=== PATIENT | male | born 1965 | race Caucasian/White ===

== ENCOUNTER 2017-11-01 19:18 | Emergency (ER) | payer OTHER ==
[2017-11-01 20:16] LABS: Basophils # (Auto) 0.1 K/mm3 (0.0-0.1); Basophils % (Auto) 0.4 % (0.0-1.8); Eosinophils # (Auto) 0.5 K/mm3 (0.0-0.4); Eosinophils % (Auto) 4.1 % (0.0-4.3); Hematocrit 37.7 % (35.5-45.6); Hemoglobin 12.6 gm/dl (11.8-15.2); Lymphocytes # (Auto) 1.7 K/mm3 (1.2-5.4); Lymphocytes % (Auto) 13.6 % (13.4-35.0); Mean Corpuscular HGB Conc 34 % (32-34); Mean Corpuscular Hemoglobin 29 pg (28-32); Mean Corpuscular Volume 86 fl (84-94); Monocytes # (Auto) 0.8 K/mm3 (0.0-0.8); Monocytes % (Auto) 6.6 % (0.0-7.3); Platelet Count 270 K/mm3 (140-440); Red Cell Distribution Width 15.3 % (13.2-15.2)
[2017-11-01 20:38] LABS: Albumin 4.2 g/dL (3.9-5); Calcium 8.9 mg/dL (8.4-10.2)
[2017-11-01] MEDS ORDERED: NORVASC PO ONE (22:48)
--- NOTE | 2017-11-01 22:58 | Emergency Department Report ---
HPI - General Chief Complaint: High BP Time Seen by Provider: 11/01/17 22:44 - HPI HPI: 52-year-old male presents to the emergency department from his shelter facility in [place] with a complaint of a 2-3 day history of elevated blood pressure. He denies any symptoms of hypertension such as any complaint of headache, chest pain, shortness of breath. He does have a history of hypertension for which he takes some unknown medication twice daily. Patient also says he has some history of kidney dysfunction but is not dialysis dependent. There are records sent from the facility that showed that the patient has been on metoprolol 25 mg twice daily and they have a plan to switch him or add losartan 50 mg per day. There is some mention from the facility that the patient has had some numbness, trembling and other symptoms concerning to them. However, with nurse Roshni translating for me, the patient says that he occasionally will have some chills and he has some tingling or paresthesias intermittently in the left hand but otherwise no other strokelike symptoms and no true numbness. He denies any vision change, slurred speech or any other neurological deficits. ED Past Medical Hx - Past Medical History Previous Medical History?: Yes Hx Hypertension: Yes - Surgical History Past Surgical History?: No - Social History Smoking Status: Never Smoker Substance Use Type: None ED Review of Systems ROS: Stated complaint: WEAKNESS ELEVATED BP Other details as noted in HPI Comment: All other systems reviewed and negative Constitutional: chills. denies: fever Eyes: denies: eye pain, eye discharge, vision change ENT: denies: ear pain, throat pain Respiratory: denies: cough, shortness of breath, wheezing Cardiovascular: denies: chest pain, palpitations Gastrointestinal: denies: abdominal pain, nausea, diarrhea Genitourinary: denies: urgency, dysuria Musculoskeletal: denies: back pain, joint swelling, arthralgia Skin: denies: rash, lesions Neurological: paresthesias. denies: headache, weakness Physical Exam - Physical Exam Vital Signs: Vital Signs 11/01/17 11/01/17 11/01/17 19:34 22:29 22:30 Temperature 98.7 F Pulse Rate 95 H 86 82 Respiratory 18 12 10 L Rate Blood Pressure 139/102 O2 Sat by Pulse 100 99 99 Oximetry 11/01/17 22:46 Temperature Pulse Rate 102 H Respiratory 12 Rate Blood Pressure 166/109 O2 Sat by Pulse 97 Oximetry Physical Exam: GENERAL: The patient is well-developed well-nourished. HENT: Normocephalic. Atraumatic. Patient has moist mucous membranes. EYES: Extraocular motions are intact. Pupils equal reactive to light bilaterally. NECK: Supple. Trachea is midline. CHEST/LUNGS: Clear to auscultation. There is no respiratory distress noted. HEART/CARDIOVASCULAR: Regular. There is no tachycardia. There is no murmur. ABDOMEN: Abdomen is soft, nontender. Patient has normal bowel sounds. There is no abdominal distention. SKIN: Skin is warm and dry. NEURO: The patient is awake, alert, and oriented. The patient is cooperative. The patient has no focal neurologic deficits. The patient has normal speech. Cranial nerves II through XII grossly intact. MUSCULOSKELETAL: There is no tenderness or deformity. There is no limitation range of motion. There is no evidence of acute injury. ED Course Vital Signs 11/01/17 11/01/17 11/01/17 19:34 22:29 22:30 Temperature 98.7 F Pulse Rate 95 H 86 82 Respiratory 18 12 10 L Rate Blood Pressure 139/102 O2 Sat by Pulse 100 99 99 Oximetry 11/01/17 22:46 Temperature Pulse Rate 102 H Respiratory 12 Rate Blood Pressure 166/109 O2 Sat by Pulse 97 Oximetry ED Medical Decision Making - Lab Data Result diagrams: 11/01/17 19:43 11/01/17 19:43 - Medical Decision Making The patient says he is here at the emergency department secondary to concerns of his hypertension. There is paperwork from the facility that stated that they have more concern for other issues they believe the patient has told them including some shaking and/or trembling, numbness to the hand(s), and dizziness and to rule out a CVA. With a fax machine operator present, this concern was related to the patient who says that he has none of those symptoms, also denies headache, visual change, slurred speech, and he himself has no concern for any stroke or strokelike symptoms. The patient did say that he had some occasional chills and occasionally will have paresthesias. We have a CBC that was unremarkable. His metabolic panel was only positive for renal insufficiency which the patient says that he has a history and this confirmed on the paperwork which labels him with chronic kidney disease. Patient was given a dose of Norvasc and his blood pressure came down to a much more reasonable level. The shelter facility does have biomedical engineering professor who will be able to continue working on his hypertension and will continue monitoring him for any change in mental status or any other concerns. As of right now, the patient has no focal, motor or sensory deficits. His cranial nerves are intact. Critical Care Time: No Critical care attestation.: If time is entered above; I have spent that time in minutes in the direct care of this critically ill patient, excluding procedure time. ED Disposition Clinical Impression: Hypertension Qualifiers: Hypertension type: essential hypertension Qualified Code(s): I10 - Essential ( primary) hypertension Disposition: TO HOME OR SELFCARE Is pt being admited?: No Condition: Stable Instructions: Hypertension (ED) Additional Instructions: Continue taking your blood pressure medications. Follow up with the doctor at your facility regarding your elevated blood pressure. Try and stay away from foods that are high in salt. Return to the emergency department with any worsening of your symptoms or any acute distress. Referrals: PRIMARY CARE, [Primary Care Provider] - [facility] Time of Disposition: 00:22
[2017-11-02 01:01] VITALS: BP 141/86
== END 2017-11-02 01:02 | disposition home or self-care (01) ==
LOC: ED 19:18 → EEVIPCON 19:18 → ED 11-02 01:02
DX: I10 Essential (primary) hypertension (principal); R68.83 Chills (without fever); R20.2 Paresthesia of skin
CPT/HCPCS: 36415; 80053; 85025; 93005; 93010; 99283